=== PATIENT | female | born 1940 | race Caucasian/White ===

== ENCOUNTER 2020-04-21 09:21 | Emergency (ER) | payer BC, OTHER ==
[2020-04-21 09:30] VITALS: TEMP 98.1; BMI 26.0
[2020-04-21] MEDS ORDERED: ACETAMINOPHEN 1000 MG/100 ML VIAL (NON FORMULARY) IVPB ONE ×2 (09:39→11:49)
[2020-04-21] MEDS ORDERED: SODIUM CHLORIDE 0.9% 500 ML INFUS.BAG IV ONE (09:39)
[2020-04-21 10:30] LABS: ALBUMIN 3.9 g/dl (3.4-5.0); BILIRUBIN,TOTAL 0.4 mg/dl (0.2-1); CALCIUM 9.5 mg/dl (8.5-10); POTASSIUM 4.5 mmol/L (3.5-5.1); TOT PROT 7.2 g/dl (6.4-8.2)
[2020-04-21 11:18] LABS: BASO % 0.5 % (0-2.0); EOS % 0.6 % (0-4.5); HEMOGLOBIN 13.4 GM/dL (10.7-15.3); LYMPH % 20.2 % (8-40); MCH 30.9 pg (25.7-33.7); MCHC 32.6 g/dl (32.0-36.0); MEAN CELL VOLUME 94.6 fl (80-96); MEAN PLT VOLUME 10.5 fl (7.5-11.1); MONO % 5.7 % (3.8-10.2); PLATELET COUNT 183 K/MM3 (134-434); RBC 4.33 M/mm3 (3.60-5.2); RDW 13.2 % (11.6-15.6); WHITE BLOOD COUNT 5.8 K/mm3 (4.0-10.0)
[2020-04-21 11:41] VITALS: BP 179/83; PULSE 81
[2020-04-21] MEDS ORDERED: ACETAMINOPHEN INJECTION 100 ML IVPB ONE (11:59)
[2020-04-21 12:09] LABS: EPITHELIAL CELLS FEW /hpf; URINE HYALINE CAST 0-2 /lpf; URINE MUCUS 1+
== END 2020-04-21 13:43 | disposition home or self-care (01) ==
LOC: FER 09:21
PROC: 3E0333Z Introduction of Anti-inflammatory into Peripheral Vein, Percutaneous Approach (ICD-10-PCS; principal; 2020-04-21)
DX: R10.12 Left upper quadrant pain (principal)
CPT/HCPCS: 36415; 74177-TC; 80053; 81003; 81015; 84484; 85025; 87086; 99285-25; J0131; Q9967

== ENCOUNTER 2025-02-11 14:10 | Emergency (ER) | payer OTHER ==
[2025-02-11 14:21] VITALS: BP 126/94; PULSE 91; RESP 18; TEMP 97.8; BMI 29.2
[2025-02-11] MEDS ORDERED: ACETAMINOPHEN 325 MG TABLET (FP) ONE (14:48)
[2025-02-11] MEDS: ACETAMINOPHEN 325 MG TABLET (FP) PO ONE (14:55)
[2025-02-11 15:27] LABS: ALK PHOS 83.0 U/L (45-117); CO2 23.0 mmol/L (21-32); CREATININE 1.1 mg/dl (0.6-1.3); GLUCOSE,RANDOM 184.0 mg/dl (74-106); SGOT/AST 22.0 U/L (15-37); SGPT/ALT 20.0 U/L (7-52); TOT PROT 6.9 g/dl (6.4-8.2)
[2025-02-11 15:36] LABS: ABSOLUTE IMMATURE GRANULOCYTES 0.01 x10^3/uL (0.0-0.031); BASOPHILS # 0.02 x10^3/uL (0.01-0.08); EOSINOPHIL % 0.6 % (0.7-5.8); EOSINOPHILS # 0.04 x10^3/uL (0.04-0.36); MCHC 32.9 g/dl (32.2-35.5); MEAN CELL VOLUME 94.9 fl (79.4-94.8); MEAN PLT VOLUME 11.4 fl (9.4-12.3); MONOCYTE # 0.40 x10^3/uL (0.24-0.86); MONOCYTE % 5.6 % (4.7-12.5); RDW 12.3 % (12.5-17.0)
[2025-02-11 17:20] LABS: HCV DIAGNOSTIC IN-HOUSE W/RFLX NON-REACTIVE (NONREACTIVE)
[2025-02-11 17:21] LABS: HIV INTERPRETATION NEGATIVE (NEGATIVE)
== END 2025-02-11 18:00 | disposition home or self-care (01) ==
LOC: FER 14:10
DX: R10.12 Left upper quadrant pain (principal); R11.0 Nausea
CPT/HCPCS: 36415; 74176-TC; 80053; 81003; 81015; 85025; 86803; 87086; 87389; 99284-25